=== PATIENT | female | born 1990 | race Caucasian/White ===

== ENCOUNTER 2018-07-09 15:45 | Emergency (ER) | payer OTHER ==
[2018-07-09 17:57] LABS: URINE BLOOD (Dip) POC 2+ (NEGATIVE); URINE GLUCOSE (Dip) POC Negative (NEGATIVE); URINE KETONES (Dip) POC Trace (NEGATIVE); URINE LEUKOCYTE EST (Dip) POC 1+ (NEGATIVE); URINE NITRITE (Dip) POC Negative (NEGATIVE); URINE TOTAL PROTEIN POC Trace (NEGATIVE)
== END 2018-07-09 19:23 | disposition home or self-care (01) ==
LOC: FTE 15:45
DX: O20.9 Hemorrhage in early pregnancy, unspecified (principal); O23.11 Infections of bladder in pregnancy, first trimester; R10.2 Pelvic and perineal pain; Z3A.01 Less than 8 weeks gestation of pregnancy
CPT/HCPCS: 76801; 81003; 81025; 84702; 99284-25

== ENCOUNTER 2019-01-25 00:11 | Outpatient (CLI) | payer OTHER ==
[2019-01-25 02:09] LABS: ADD UMIC YES; UR ASCORBIC ACID NEGATIVE (NEGATIVE); UR BACTERIA FEW /HPF (NONE SEEN); UR BILIRUBIN (Dip) NEGATIVE (NEGATIVE); UR BLOOD (Dip) NEGATIVE (NEGATIVE); UR CALCIUM OXALATE CRYSTAL MANY /HPF (NONE SEEN); UR CLARITY SLIGHTLY CLOUDY (CLEAR); UR COLOR YELLOW (YELLOW); UR GLUCOSE (Dip) NEGATIVE (NEGATIVE); UR KETONES (Dip) NEGATIVE (NEGATIVE); UR LEUKOCYTE ESTERASE (Dip) 2+ Leu/ul (NEGATIVE); UR MUCUS MANY /HPF (NONE SEEN); UR NITRITE (Dip) NEGATIVE (NEGATIVE); UR RBC 3 /HPF (0-5); UR SPECIFIC GRAVITY (Dip) 1.025 (1.003-1.030); UR SQUAMOUS EPITHELIAL CELL FEW /HPF (FEW); UR TOTAL PROTEIN (Dip) NEGATIVE (NEGATIVE); UR UROBILINOGEN (Dip) 1+ mg/dL (NEGATIVE); UR WBC 6 /HPF (0-5)
== END 2019-01-25 04:55 | disposition home or self-care (01) ==
LOC: OBT 00:11 → L-D 00:13 → OBT 04:55
DX: O47.03 False labor before 37 completed weeks of gestation, third trimester (principal); O26.893 Other specified pregnancy related conditions, third trimester; R10.2 Pelvic and perineal pain; Z3A.36 36 weeks gestation of pregnancy
CPT/HCPCS: 76815; 76818; 81001

== ENCOUNTER 2019-01-29 16:28 | Outpatient (CLI) | payer OTHER | END 2019-01-29 19:55 | disposition home or self-care (01) | LOC: OBT 16:28 → L-D 16:29 → OBT 19:55 | DX: O26.893 Other specified pregnancy related conditions, third trimester (principal); G40.909 Epilepsy, unspecified, not intractable, without status epilepticus; Z3A.36 36 weeks gestation of pregnancy | CPT/HCPCS: Z7500 ==

== ENCOUNTER 2019-02-05 14:55 | Inpatient (IN) | payer OTHER ==
[2019-02-05 16:15] LABS: ADD MAN DIFF? NO
[2019-02-05 16:16] LABS: BASOPHILS % 0.3 % (0.0-2.0); EOSINOPHILS # 0.1 10^3/ul (0.0-0.5); EOSINOPHILS % 0.8 % (0.0-7.0); HEMOGLOBIN 10.5 g/dl (12.0-16.0); LYMPHOCYTES # 2.5 10^3/ul (0.8-2.9); LYMPHOCYTES % 26.6 % (15.0-51.0); MEAN CORPUSCULAR HEMOGLOBIN 25.9 pg (29.0-33.0); MEAN CORPUSCULAR HGB CONC 31.8 g/dl (32.0-37.0); MEAN CORPUSCULAR VOLUME 81.5 fl (82.0-101.0); MEAN PLATELET VOLUME 10.9 fl (7.4-10.4); MONOCYTE # 0.6 10^3/ul (0.3-0.9); MONOCYTES % 6.6 % (0.0-11.0); NEUTROPHILS % 64.7 % (39.0-77.0); PLATELET COUNT 153 10^3/UL (140-415); RED BLOOD COUNT 4.05 10^6/ul (4.20-5.40); RED CELL DISTRIBUTION WIDTH 13.6 % (11.5-14.5)
[2019-02-05 16:16] LABS: WHITE BLOOD COUNT 9.2 10^3/ul (4.8-10.8)
[2019-02-05 16:24] LABS: ADD UMIC YES; UR ASCORBIC ACID NEGATIVE (NEGATIVE); UR BACTERIA FEW /HPF (NONE SEEN); UR BILIRUBIN (Dip) NEGATIVE (NEGATIVE); UR BLOOD (Dip) NEGATIVE (NEGATIVE); UR CLARITY SLIGHTLY CLOUDY (CLEAR); UR COLOR YELLOW (YELLOW); UR GLUCOSE (Dip) NEGATIVE (NEGATIVE); UR KETONES (Dip) TRACE mg/dL (NEGATIVE); UR LEUKOCYTE ESTERASE (Dip) 2+ Leu/ul (NEGATIVE); UR MUCUS MANY /HPF (NONE SEEN); UR NITRITE (Dip) NEGATIVE (NEGATIVE); UR RBC 3 /HPF (0-5); UR SPECIFIC GRAVITY (Dip) 1.019 (1.003-1.030); UR SQUAMOUS EPITHELIAL CELL FEW /HPF (FEW); UR TOTAL PROTEIN (Dip) NEGATIVE (NEGATIVE); UR UROBILINOGEN (Dip) 2+ mg/dL (NEGATIVE); UR WBC 4 /HPF (0-5)
[2019-02-05 16:35] LABS: ALANINE AMINOTRANSFERASE 11 IU/L (13-69); ALBUMIN 3.1 g/dl (3.3-4.9); ALBUMIN/GLOBULIN RATIO 0.93; ALKALINE PHOSPHATASE 163 IU/L (42-121); ANION GAP 7 (5-13); ASPARTATE AMINO TRANSFERASE 16 IU/L (15-46); BILIRUBIN,INDIRECT 0.3 mg/dl (0-1.1); BILIRUBIN,TOTAL 0.3 mg/dl (0.2-1.3); BLOOD UREA NITROGEN 10 mg/dl (7-20); CALCIUM 8.8 mg/dl (8.4-10.2); CARBON DIOXIDE 19 mmol/L (21-31); CHLORIDE 110 mmol/L (97-110); CREATININE 0.45 mg/dl (0.44-1.00); Estimated GFR > 60 mL/min (>60); GLUCOSE 90 mg/dl (70-220); POTASSIUM 3.9 mmol/L (3.5-5.1); SODIUM 136 mmol/L (135-144); TOTAL PROTEIN 6.4 g/dl (6.1-8.1)
[2019-02-05 16:42] LABS: B-TYPE NATRIURETIC PEPTIDE 23 PG/ML (0-125)
[2019-02-05] MEDS: LACTATED RINGER'S 500 ML IV (18:14)
[2019-02-05] MEDS: LACTATED RINGER'S 1,000 ML IV (19:35)
[2019-02-05] MEDS ORDERED: LEVETIRACETAM 500 MG TAB PO (21:00)
[2019-02-06] MEDS ORDERED: FERROUS FUMARATE (SR) TAB PO (09:00)
[2019-02-06] MEDS ORDERED: PRENATAL VITAMIN PO (09:00)
== END 2019-02-05 20:55 | disposition home or self-care (01) | DRG 833 ==
LOC: OBT 14:55 → L-D 14:57 → OBT 15:35 → L-D 15:35
DX: O99.513 Diseases of the respiratory system complicating pregnancy, third trimester (principal); R06.02 Shortness of breath; O99.413 Diseases of the circulatory system complicating pregnancy, third trimester; R00.0 Tachycardia, unspecified; O99.013 Anemia complicating pregnancy, third trimester; Z3A.37 37 weeks gestation of pregnancy
CPT/HCPCS: 59025; 76818; 80053; 81001; 83880; 85025; 93005; 93970

== ENCOUNTER 2019-02-16 04:40 | Inpatient (IN) | payer OTHER ==
[2019-02-16] MEDS ORDERED: LACTATED RINGER'S 1,000 ML IV (05:02)
[2019-02-16 05:29] LABS: ADD MAN DIFF? NO
[2019-02-16] MEDS ORDERED: MISOPROSTOL 200 MCG TAB PR ×2 (05:30→06:30)
[2019-02-16] MEDS ORDERED: BUTORPHANOL 2 MG INJ IV (05:30)
[2019-02-16] MEDS ORDERED: LIDOCAINE 1% (MPF) 30 ML INJ INJ (05:30)
[2019-02-16] MEDS ORDERED: METHYLERGONOVINE 0.2 MG INJ IM ×2 (05:30→06:30)
[2019-02-16] MEDS ORDERED: OXYTOCIN 30 UNITS/LR 500 ML IV ×4 (05:30→06:30)
[2019-02-16] MEDS ORDERED: AMPICILLIN 2 GM/NS (PMX) 100 ML IV (05:30)
[2019-02-16] MEDS ORDERED: CARBOPROST 250 MCG INJ IM ×2 (05:30→06:30)
[2019-02-16 05:42] LABS: WHITE BLOOD COUNT 9.6 10^3/ul (4.8-10.8)
[2019-02-16 05:42] LABS: BASOPHILS % 0.3 % (0.0-2.0); EOSINOPHILS % 0.4 % (0.0-7.0); HEMATOCRIT 34.8 % (37.0-47.0); HEMOGLOBIN 11.1 g/dl (12.0-16.0); LYMPHOCYTES # 2.9 10^3/ul (0.8-2.9); LYMPHOCYTES % 29.8 % (15.0-51.0); MEAN CORPUSCULAR HEMOGLOBIN 25.6 pg (29.0-33.0); MEAN CORPUSCULAR HGB CONC 31.9 g/dl (32.0-37.0); MEAN CORPUSCULAR VOLUME 80.2 fl (82.0-101.0); MEAN PLATELET VOLUME 10.9 fl (7.4-10.4); MONOCYTE # 0.5 10^3/ul (0.3-0.9); MONOCYTES % 5.5 % (0.0-11.0); NEUTROPHIL # 6.1 10^3/ul (1.6-7.5); NEUTROPHILS % 63.3 % (39.0-77.0); PLATELET COUNT 142 10^3/UL (140-415); RED BLOOD COUNT 4.34 10^6/ul (4.20-5.40); RED CELL DISTRIBUTION WIDTH 13.7 % (11.5-14.5)
[2019-02-16 05:51] LABS: PARTIAL THROMBOPLASTIN TIME 26.3 Sec (23.0-35.0); PROTIME 12.3 Sec (11.9-14.9)
[2019-02-16] MEDS: LACTATED RINGER'S 1,000 ML IV (05:56)
[2019-02-16] MEDS: IBUPROFEN 600 MG TAB PO ×4 (06:00→23:56)
[2019-02-16] MEDS: OXYTOCIN 30 UNITS/LR 500 ML IV (06:16)
[2019-02-16] MEDS ORDERED: LANOLIN HPA 1 PKT TOP (06:30)
[2019-02-16 08:30] LABS: HEPATITIS B SURFACE ANTIGEN NEGATIVE (NEGATIVE)
[2019-02-16] MEDS: LACTATED RINGER'S 1,000 ML IV* ×2 (09:07→14:04)
[2019-02-16] MEDS ORDERED: AMPICILLIN 1 GM/NS (PMX) 50 ML IV (09:30)
[2019-02-16] MEDS: LEVETIRACETAM 500 MG TAB PO ×2 (09:31→21:35)
[2019-02-16] MEDS: HYDROCODONE/APAP (5/325) TAB PO (09:31)
[2019-02-16 22:15] LABS: RAPID PLASMA REAGIN NONREACTIVE (NR)
[2019-02-17] MEDS: IBUPROFEN 600 MG TAB PO ×3 (06:11→17:53)
[2019-02-17 09:12] LABS: ADD MAN DIFF? NO
[2019-02-17 09:18] LABS: BASOPHILS % 0.3 % (0.0-2.0); EOSINOPHILS # 0.1 10^3/ul (0.0-0.5); EOSINOPHILS % 0.9 % (0.0-7.0); HEMATOCRIT 29.4 % (37.0-47.0); HEMOGLOBIN 9.3 g/dl (12.0-16.0); LYMPHOCYTES # 2.4 10^3/ul (0.8-2.9); LYMPHOCYTES % 28.1 % (15.0-51.0); MEAN CORPUSCULAR HEMOGLOBIN 25.3 pg (29.0-33.0); MEAN CORPUSCULAR HGB CONC 31.6 g/dl (32.0-37.0); MEAN CORPUSCULAR VOLUME 80.1 fl (82.0-101.0); MEAN PLATELET VOLUME 11.4 fl (7.4-10.4); MONOCYTE # 0.3 10^3/ul (0.3-0.9); MONOCYTES % 3.8 % (0.0-11.0); NEUTROPHIL # 5.7 10^3/ul (1.6-7.5); NEUTROPHILS % 66.2 % (39.0-77.0); PLATELET COUNT 135 10^3/UL (140-415); RED BLOOD COUNT 3.67 10^6/ul (4.20-5.40); RED CELL DISTRIBUTION WIDTH 13.8 % (11.5-14.5)
[2019-02-17 09:18] LABS: WHITE BLOOD COUNT 8.6 10^3/ul (4.8-10.8)
[2019-02-17] MEDS: LEVETIRACETAM 500 MG TAB PO ×2 (09:32→21:41)
[2019-02-18] MEDS: IBUPROFEN 600 MG TAB PO ×3 (01:35→11:54)
[2019-02-18] MEDS: DIPHTH/TET/ACEL PERTUSS (ADULT) 0.5 ML VIAL IM* (07:27)
[2019-02-18] MEDS: LEVETIRACETAM 500 MG TAB PO (09:16)
== END 2019-02-18 14:30 | disposition home or self-care (01) | DRG 807 ==
LOC: OBT 04:40 → L-D 04:40 → OBT 05:00 → L-D 05:00 → PP1 07:46
PROVIDERS: Specialist
PROC: 10E0XZZ Delivery of Products of Conception, External Approach (ICD-10-PCS; principal; 2019-02-16)
DX: O80 Encounter for full-term uncomplicated delivery (principal); Z37.0 Single live birth; Z3A.39 39 weeks gestation of pregnancy
CPT/HCPCS: 85025; 85610; 85730; 86592; 86850; 86900; 86901; 87340

== ENCOUNTER 2019-06-05 18:41 | Emergency (ER) | payer OTHER ==
[2019-06-05] MEDS: LEVETIRACETAM 500 MG TAB PO (22:08)
[2019-06-05] MEDS: LORAZEPAM 2 MG INJ IV (22:08)
[2019-06-05] MEDS: LAMOTRIGINE 25 MG TAB PO (22:08)
[2019-06-05 22:10] LABS: ADD MAN DIFF? NO
[2019-06-05 22:11] LABS: WHITE BLOOD COUNT 12.7 10^3/ul (4.8-10.8)
[2019-06-05 22:11] LABS: BASOPHILS % 0.3 % (0.0-2.0); EOSINOPHILS # 0.1 10^3/ul (0.0-0.5); EOSINOPHILS % 0.5 % (0.0-7.0); HEMATOCRIT 41.3 % (37.0-47.0); HEMOGLOBIN 12.7 g/dl (12.0-16.0); LYMPHOCYTES # 3.4 10^3/ul (0.8-2.9); LYMPHOCYTES % 26.5 % (15.0-51.0); MEAN CORPUSCULAR HEMOGLOBIN 25.2 pg (29.0-33.0); MEAN CORPUSCULAR HGB CONC 30.8 g/dl (32.0-37.0); MEAN CORPUSCULAR VOLUME 82.1 fl (82.0-101.0); MEAN PLATELET VOLUME 10.1 fl (7.4-10.4); MONOCYTE # 0.6 10^3/ul (0.3-0.9); NEUTROPHIL # 8.6 10^3/ul (1.6-7.5); NEUTROPHILS % 67.2 % (39.0-77.0); PLATELET COUNT 212 10^3/UL (140-415); RED BLOOD COUNT 5.03 10^6/ul (4.20-5.40); RED CELL DISTRIBUTION WIDTH 14.9 % (11.5-14.5)
[2019-06-05 22:38] LABS: ANION GAP 11 (5-13); BLOOD UREA NITROGEN 20 mg/dl (7-20); CALCIUM 9.6 mg/dl (8.4-10.2); CARBON DIOXIDE 24 mmol/L (21-31); CHLORIDE 105 mmol/L (97-110); Estimated GFR > 60 mL/min (>60); GLUCOSE 99 mg/dl (70-220); POTASSIUM 4.3 mmol/L (3.5-5.1); SODIUM 140 mmol/L (135-144)
== END 2019-06-05 23:20 | disposition home or self-care (01) ==
LOC: E/R 23:20
DX: G40.909 Epilepsy, unspecified, not intractable, without status epilepticus (principal); R40.2142 Coma scale, eyes open, spontaneous, at arrival to emergency department; R40.2362 Coma scale, best motor response, obeys commands, at arrival to emergency department; R40.2252 Coma scale, best verbal response, oriented, at arrival to emergency department
CPT/HCPCS: 36415; 80048; 85025; 96374; 99284-25